=== PATIENT | female | born 1950 | race African-American/Black ===

== ENCOUNTER 2016-05-17 21:48 | Emergency (ER) | payer OTHER ==
--- NOTE | ~2016-05-17 | CR127 ---
[facility] A Service of [facility] RADIOLOGY TEXT RESULTS PATIENT: ZAHIDA ERICKSON LOCATION: SED : 46 UNIT #: [id number] AGE: [address]: Dante Yang MD SEX: F ORDER DR: [id number] [address] [id number] E MR#: [id number] Acc #: [id number] NAME: ZAHIDA ERICKSON : 1950 SEX: F STUDY DATE/TIME: 05/17/2016 22:01 UNIT: SED ROOM: STUDY DESCRIPTION: CR Foot Complete Min 3 View Rt Attending Physician: Dante Yang M.D. Ordering Physician: Dante Yang M.D. MEDICAL IMAGING REPORT This report is preliminary unless electronic signature is present. EXAM Right foot, 3 views COMPARISON None. INDICATION 65-year-old female with pain across the dorsum of the foot after dropping a 2 liter soda bottle on her foot this morning. FINDINGS There is mild enthesopathy at the Achilles attachment of the calcaneus. There is a small os naviculare, a normal anatomic variant. No evidence of acute fracture. IMPRESSION 1. No acute fracture or dislocation. 2. Mild Achilles attachment enthesopathy. Dictated by... Nikolas Billy M.D. THIS IS AN ELECTRONICALLY VERIFIED REPORT Nikolas Billy M.D. at 05/18/2016 7:59 AM [place] TD: 05/18/2016 06:08 JOB #: [id number] MEDICAL IMAGING REPORT
[~2016-05-17 21:48] MED LIST: ASPIRINEC PO; BAYER ASPIRIN325 M1 PO; BLOOD PRESSURE MED PO; FISH OIL 1,0001 CAP PO; FISH OIL 1,2001 EAC4 PO; FLAX SEED OIL1000 M1 PO; FLONASE 0.05% N16 G1 INH; LIPITOR PO; METFORMIN PO; METOPROLOL TAR25 MG PO; NEXIUM PO; NORCO1 TAB 10/3; PROTONIX PO; ZOCOR PO
== END 2016-05-17 23:07 | disposition home or self-care (01) ==
LOC: SED 21:48
DX: S90.31XA Contusion of right foot, initial encounter (principal); W20.8XXA Other cause of strike by thrown, projected or falling object, initial encounter; Y92.9 Unspecified place or not applicable; E11.9 Type 2 diabetes mellitus without complications; I10 Essential (primary) hypertension
CPT/HCPCS: 29515; 73630; 99283